=== PATIENT | male | born 1970 | race Caucasian/White ===

== ENCOUNTER 2018-11-24 13:00 | Emergency (ER) | payer BC ==
[2018-11-24] MEDS ORDERED: Triamcinolone Acetonide 40 MG/ML 1 ML MDV INJECT PRN (13:20)
[2018-11-24] MEDS ORDERED: Bupivacaine 0.5% 50 ML MDV INJECT ONE (13:20)
[2018-11-24] MEDS ORDERED: Bupivacaine 0.5% 10 ML SDV INJECT ONE (13:30)
--- NOTE | 2018-11-24 13:59 | EDM.PDOC ---
ED HPI GENERAL MEDICAL PROBLEM - General Chief Complaint: Upper Extremity Injury/Pain Stated Complaint: RIGHT ELBOW PAIN Time Seen by Provider: 11/24/18 13:25 Source of Information: Reports: Patient History Limitations: Reports: No Limitations - History of Present Illness INITIAL COMMENTS - FREE TEXT/NARRATIVE: Lidia rowley 48 yo male presents with acute worsening of right elbow pain. Patient has known history of lateral epicondylitis this past fall after a full golfing season which required conservative management and physical therapy. Patient states symptoms were improving and steroid injection was recommended. Patient was unable to get injection before spending time in [facility] for the summer months. Patient has been fishing and noticed increased pain in his right elbow for the last week and to the point which his now has severe discomfort despite OTC medications and conservative home treatments. Patient drove himself to ER for evaluation due to severe right elbow pain. Patient is right handed. - Related Data Allergies Allergy/AdvReac Type Severity Reaction Status Date / Time Penicillins Allergy Severe Hives Verified 11/24/18 13:18 Sulfa (Sulfonamide Allergy Severe Diarrhea Verified 11/24/18 13:19 Antibiotics) Home Meds: Home Meds Escitalopram [Lexapro] 10 mg PO DAILY 11/24/18 [History] atorvaSTATin Calcium [Lipitor] 20 mg PO DAILY 11/24/18 [History] Past Medical History Cardiovascular History: Reports: High Cholesterol Musculoskeletal History: Reports: Other (See Below) Other Musculoskeletal History: tennis elbow on right arm last year and this year after golfing. Psychiatric History: Reports: Anxiety Social & Family History - Tobacco Use Smoking Status *Q: Light Tobacco Smoker Years of Tobacco use: 10 Packs/Tins Daily: 20 Second Hand Smoke Exposure: No - Caffeine Use Caffeine Use: Reports: Coffee, Energy Drinks, Soda - Alcohol Use Days Per Week of Alcohol Use: 5 Number of Drinks Per Day: 4 Total Drinks Per Week: 20 Date of Last Drink: 11/23/18 - Recreational Drug Use Recreational Drug Use: No Review of Systems - Review of Systems Review Of Systems: See Below ED EXAM, GENERAL - Physical Exam Exam: See Below Exam Limited By: No Limitations General Appearance: Alert, WD/WN Eye Exam: Bilateral Eye: EOMI, PERRL Ears: Normal External Exam, Hearing Grossly Normal Nose: Normal Inspection Throat/Mouth: Normal Inspection, Normal Lips, Normal Voice, No Airway Compromise Head: Normocephalic Neck: Normal Inspection, Supple, Full Range of Motion Respiratory/Chest: No Respiratory Distress Cardiovascular: Normal Peripheral Pulses, Regular Rate, Rhythm Extremities: Normal Inspection, Normal Range of Motion, Normal Capillary Refill , Arm Pain (point tenderness to palpation over lateral epicondyle with increase pain with rotation of forearm, dorsifelxion of wrist and grasping. ) Neurological: Alert, Oriented, CN II-XII Intact, Normal Cognition, Normal Gait, Normal Reflexes, No Motor/Sensory Deficits Psychiatric: Normal Affect, Normal Mood Skin Exam: Warm, Dry, Intact, Normal Color, No Rash ED TRAUMA EXTREMITY PROCEDURES - Additional/Other Procedure(s) Other (Free Text) Procedure(s): Verbal consent obtained, questions, risks and benefits of procedure reviewed with patient to include site infection, tendon injury rupture, weakness or worsening pain. Local Steroid Injection: Right Lateral Epicondylitis (Tendonitis) Site of point tenderness and injection location was agreed up on by myself and patient before proceeding. Area was prepped with Chlorhexidine scrub x 2 and allowed to dry. Sensorcaine 10mL and Kenalog 40mg/5mL was mixed by Pharmacy. Medication was instilled in the area of pain and fanned out in the area. Patient had complete resolution of pain. Area was massaged to distribute medication in the reatment area. Patient was monitored for 20-30 minutes with resolution of pain and no acute adverse reaction to medication. Sling was applied to arm to remind patient of decreased use over the next 1-2 weeks with restarting Physical Therapy treatment with Ice massage and Heat treatments. Course - Vital Signs Last Recorded V/S: Last Vital Signs Temp 35.4 C 11/24/18 13:22 Pulse 70 11/24/18 13:22 Resp 16 11/24/18 13:22 BP 133/86 11/24/18 13:22 Pulse Ox 96 11/24/18 13:22 - Orders/Labs/Meds Orders: Active Orders 24 hr Category Date Time Status DME for Discharge [COMM] Urgent Oth 11/24/18 13:51 Ordered Meds: Medications Discontinued Medications Generic Name Dose Route Start Last Admin Trade Name Freq PRN Reason Stop Dose Admin Bupivacaine HCl 10 ml 11/24/18 13:30 11/24/18 14:00 Sensorcaine-Mpf 0.5% INJECT 11/24/18 13:31 10 ml ONETIME ONE Administration Triamcinolone Acetonide 40 mg 11/24/18 13:20 11/24/18 14:00 Kenalog-40 INJECT 40 mg ASDIRECTED PRN Administration Pain Departure - Departure Time of Disposition: 13:53 Disposition: Home, Self-Care 01 Clinical Impression: Lateral epicondylitis, right elbow - Discharge Information Instructions: Tennis Elbow, [id number], Tennis Elbow Rehab-SportsMed, Tendinitis, [id number], Elbow and Forearm Exercises-SportsMed, Triamcinolone injection Referrals: PCP,None [Primary Care Provider] - Forms: ED Department Discharge Additional Instructions: 1. Ice massage to area 15-20 minutes 3-5 times per day then heat 15-20 minutes and preform Physical therapy exercises. 2. Wear Elbow strap to massage area with use. Wear splint to avoid use of right elbow upper extremity. 3. Increased risk of tendon rupture with steroid use. 4. Ibuprofen 600-800mg every 6-8 hours with food for pain swelling and inflammation. 5. Resume physical Therapy per previous treatment plan. THE DISCHARGE INSTRUCTIONS ARE INTENDED A COMPLEMENT TO AND NOT A REPLACEMENT FOR THE VERBAL INSTRUCTIONS THAT I HAVE PROVIDED YOU TODAY. AFTER GOING OVER THE PLAN OF CARE AND PROVIDING YOU WITH THE VERBAL INSTRUCTIONS. YOU HAVE HAD THE OPPORTUNITY TO ASK FURTHER QUESTIONS AND TO CLARIFY UNCERTAINTIES. THANK YOU FOR ALLOWING US TO ASSIST WITH YOUR MEDICAL CONCERNS AND NEEDS. - Problem List & Annotations (1) Lateral epicondylitis, right elbow SNOMED Code(s): 188006840955024 Code(s): M77.11 - LATERAL EPICONDYLITIS, RIGHT ELBOW Status: Acute - My Orders Last 24 Hours: My Active Orders 11/24/18 13:51 DME for Discharge [COMM] Urgent - Assessment/Plan Last 24 Hours: My Active Orders 11/24/18 13:51 DME for Discharge [COMM] Urgent
== END 2018-11-24 14:45 | disposition home or self-care (01) ==
LOC: JP.ED 13:00
DX: M77.11 Lateral epicondylitis, right elbow (principal); E78.00 Pure hypercholesterolemia, unspecified; F41.9 Anxiety disorder, unspecified; F17.210 Nicotine dependence, cigarettes, uncomplicated; Z88.0 Allergy status to penicillin; Z88.2 Allergy status to sulfonamides; Z79.899 Other long term (current) drug therapy
CPT/HCPCS: 20605; 99283; J3301; J3490